=== PATIENT | male | born 2000 | race Hispanic/Latino ===

== ENCOUNTER 2025-05-19 21:12 | Observation (INO) | payer SELFPAY ==
[~2025-05-19 21:12] MED LIST: Iopamidol 300 61% 100 ML VIAL FS ONE
[2025-05-19] MEDS ORDERED: Ketorolac Tromethamine 30 MG (1 mL) VIAL ONE (21:39)
[2025-05-19] MEDS ORDERED: Famotidine/PF 20 mg/2ml Vial ONE (21:39)
[2025-05-19 21:43] LABS: Glucose, Urine (Dipstick) Normal (Negative); Leukocyte Negative (Negative); Protein, Urine (Dipstick) Negative (Neg-Trace); Specific Gravity, Urine 1.010 (1.005-1.030)
[2025-05-19 21:53] LABS: Bacteria/HPF Rare-Few HPF (None Seen); CAUTI Indications for Culture Dysuria,urgency,freq; RBC/HPF None Seen HPF (0-3); Urine Culture Reflex No No; WBC/HPF None Seen HPF (0-3)
[2025-05-19 22:20] LABS: #Basophils 0.04 10x3/uL (0.0-0.2); #Eosinophils 0.03 10x3/uL (0.0-0.5); #Monocytes 0.73 10x3/uL (0.0-1.1); #Neutrophils 13.78 10x3/uL (1.5-8.4); %Basophils 0.2 % (0.0-2.0); %Eosinophils 0.2 % (0.0-6.0); %Lymphocytes 12.7 % (18.0-47.0); %Monocytes 4.4 % (0.0-10.0); %Neutrophils 82.2 % (40.0-75.0); Hematocrit 46.2 % (38.8-50.0); Hemoglobin 16.3 g/dL (13.5-17.5); Mean Corpuscular Hemoglobin 30.1 pg (27.0-33.0); Mean Corpuscular Volume 85.2 fL (81.2-95.1); Platelet Count 225 10x3/uL (150-450); Red Blood Cell (RBC) Count 5.42 10x6/uL (4.32-5.72); White Blood Cell (WBC) Count 16.75 10x3/uL (3.5-10.5)
[2025-05-19 22:46] LABS: ALT (SGPT) 81 U/L (Less than 45); AST (SGOT) 53 U/L (11-34); Albumin 5.1 g/dL (3.1-4.5); Alkaline Phosphatase 84 U/L (40-110); Anion Gap 16 mmol/L (10-20); BUN (Urea Nitrogen) 11 mg/dL (8.9-20.6); Bilirubin, Total 0.7 mg/dL (0.3-1.2); Calc. Creatinine Clearance 0 mL/min (70-130); Calcium 9.7 mg/dL (7.8-10.44); Carbon Dioxide 21 mmol/L (22-29); Chloride 104 mmol/L (98-107); Globulin 3.6 g/dL (2.4-3.5); Glucose 113 mg/dL (70-105); Lipase 8 U/L (8-78); Potassium 4.0 mmol/L (3.5-5.1); Sodium 137 mmol/L (136-145)
[2025-05-20 00:24] VITALS: BMI 44.8
[2025-05-20] MEDS ORDERED: Ondansetron PF 4 MG/2 ML Vial IVP PRN ×2 (00:29→12:45)
[2025-05-20] MEDS ORDERED: Bupivacaine HCl 0.5%/Epinephrine 1:200,000/PF 30 ml Vial ONE (07:22)
[2025-05-20] MEDS ORDERED: PROPOFOL 40 ML ONE (08:07)
[2025-05-20] MEDS ORDERED: Lidocaine 2% PF 100 mg/5 ml Syringe ONE (08:15)
[2025-05-20] MEDS ORDERED: Rocuronium Bromide 10 MG/ML (10ML VIAL) ONE (08:16)
[2025-05-20] MEDS ORDERED: SUGAMMADEX SODIUM 200 MG/2 ML VIAL ONE (11:49)
[2025-05-20] MEDS ORDERED: Dextrose 50% Abboject 50 ML SYRINGE SLOW IVP PRN (12:45)
[2025-05-20] MEDS ORDERED: HYDROcodone/Acetaminophen 10/325 mg Tablet PO PRN (12:45)
[2025-05-20] MEDS ORDERED: Glucagon 1 MG/ML KIT IM PRN (12:45)
[2025-05-20] MEDS ORDERED: hydrALAZINE 20 MG/ML VIAL SLOW IVP PRN (12:45)
[2025-05-20] MEDS: HYDROcodone/Acetaminophen 10/325 mg Tablet PO PRN (15:12)
[2025-05-20] MEDS: Ketorolac Tromethamine 30 MG (1 mL) VIAL IVP SCH (17:27)
[2025-05-20] MEDS: Famotidine 20 MG TAB PO SCH (21:59)
[2025-05-21 08:05] VITALS: BP 136/59; TEMP 97.9
== END 2025-05-21 09:20 | disposition home or self-care (01) ==
LOC: CSHERS 21:12 → CSHTELE 23:08
PROVIDERS: ADMIT Surgery; ATTEND Surgery
PROC: 0DTJ4ZZ Resection of Appendix, Percutaneous Endoscopic Approach (ICD-10-PCS; principal; 2025-05-20)
DX: K35.30 Acute appendicitis with localized peritonitis, without perforation or gangrene (principal); F17.290 Nicotine dependence, other tobacco product, uncomplicated; E66.01 Morbid (severe) obesity due to excess calories; Z68.41 Body mass index [BMI] 40.0-44.9, adult
CPT/HCPCS: 74177; 80053; 81001; 83690; 85025; 88304; 93005; 96365; 96375; A4649; C1776; C1889; J1100; J1308; J1885; J2003; J2250; J2270; J2543; J2704; J3010; J7030; J7120; Q9967